=== PATIENT | female | born 1945 | race Caucasian/White ===

== ENCOUNTER 2023-09-22 16:05 | Emergency (ER) | payer OTHER ==
[2023-09-22] MEDS ORDERED: SMZ./TMP. 800/160 MG TABLET ONE (16:34)
[2023-09-22] MEDS ORDERED: TDAP (DIPHTH,PERTUSS(ACELL),TET VAC) 0.5 ML VIAL IMVAC ONE (16:34)
--- NOTE | 2023-09-22 17:19 | RAD REPORT ---
EXAM DESCRIPTION: CT - Facial Bones W/ Mpr - 09/22/2023 5:03 pm CLINICAL HISTORY: Facial injury with pain COMPARISON: None TECHNIQUE: Computed axial tomography of the face was obtained. Coronal and sagittal reconstruction w as performed. All CT scans are performed using dose optimization technique as appropriate and may include automated exposure control or mA/KV adjustment according to patient size. FINDINGS: Some images are degraded by patient motion artifact Right periorbital hematoma A fracture is not seen. A TMJ dislocation is not noted. The globes are intact. Minimal fluid within the sphenoid sinus IMPRESSION: Negative for a facial fracture.
--- NOTE | 2023-09-22 17:20 | RAD REPORT ---
EXAM DESCRIPTION: CT - Head C Spine Mpr Wo Con - 09/22/2023 5:00 pm CLINICAL HISTORY: Head and neck injury status post fall. Head and neck pain COMPARISON: None. TECHNIQUE: Computed axial tomography of the head and cervical spine was obtained. Sagittal and coronal reconstruction was performed. All CT scans are performed using dose optimization technique as appropriate and may include automated exposure control or mA/KV adjustment according to patient size. FINDINGS: Right frontal scalp swelling An intracranial bleed is not seen. The ventricles are normal in caliber. No significant hypodensity within the brain. An extra-axial fluid collection is not noted. Fluid within the visualized sinuses and mastoids is not seen A cervical fracture is not visualized. No dislocation is noted. IMPRESSION: No acute intracranial abnormality is seen. A cervical fracture is not visualized. If the patient continues to have symptoms to suggest intracranial /spinal cord pathology then MRI wou ld be recommended
--- NOTE | 2023-09-22 17:37 | ER ---
Nurse's Notes [facility] Name: Carla Shaikh Age: 77 yrs Sex: Female : 1945 Arrival Date: 09/22/2023 Time: 16:05 Bed 19 Private MD: Diagnosis: Fall on same level, unspecified;Fracture of nasal bones;Laceration without foreign body of other part of head-nasal bridge Presentation: 09/21 16:11 Chief complaint: EMS states: [place], was stepping off of a curb, tripped ph and fell forward, no LOC, does not use blood thinners, laceration to bridge of nose and bruising above R eye, no other injuries. Coronavirus screen: Vaccine status: Patient reports receiving the 2nd dose of the covid vaccine. Ebola Screen: No symptoms or risks identified at this time. Initial Sepsis Screen: Does the patient meet any 2 criteria? No. Patient's initial sepsis screen is negative. Does the patient have a suspected source of infection? No. Patient's initial sepsis screen is negative. Risk Assessment: Do you want to hurt yourself or someone else? Patient reports no desire to harm self or others. Onset of symptoms was September 22, 2023. 16:11 Method Of Arrival: EMS: [facility] ph 16:11 Acuity: MARTI 3 ph 16:20 Care prior to arrival: None. Mechanism of Injury: Fall from standing position. Trauma ph event details: Injury occurred in the [facility]. Trauma event details: Injury occurred: in a public building. Injury occurred: September 22, 2023. Trauma Activation: Not Applicable Physician: ED Physician; Name: ; Notified At: ; Arrived At: Physician: General Surgeon; Name: ; Notified At: ; Arrived At: Physician: Radiology; Name: ; Notified At: ; Arrived At: Physician: Respiratory; Name: ; Notified At: ; Arrived At: Physician: Lab; Name: ; Notified At: ; Arrived At: Historical: - Allergies: 16:14 PENICILLINS; ph 16:14 IODINATED CONTRAST MEDIA; ph - Immunization history:: Adult Immunizations unknown. - Infectious Disease History:: Denies. - Immunization history: Last tetanus immunization: unknown. - Social history:: Smoking status: Patient denies any tobacco usage or history of. Screenin:19 [facility] ED Fall Risk Assessment (Adult) History of falling in the last 3 months, ph including since admission Yes- single mechanical fall (1 pt) Confusion or Disorientation No (0 pts) Intoxicated or Sedated No (0 pts) Impaired Gait No (0 pts) Mobility Assist Device Used No (0 pt) Altered Elimination No (0 pt) Score/Fall Risk Level 0 - 2 = Low Risk Oriented to surroundings, Maintained a safe environment, Hourly rounding (assess needs \T\ fall precautionary measures) done. Abuse screen: Denies threats or abuse. Denies injuries from another. Nutritional screening: No deficits noted. Tuberculosis screening: No symptoms or risk factors identified. Primary Survey: 16:18 NO uncontrolled hemorrhage observed. A: The client is awake and alert. The airway is ph patent. Breathing/Chest: Spontaneous respiratory effort, equal unlabored respirations, breath sounds clear bilaterally, regular pattern, symmetrical chest rise and fall. Circulation: No external hemorrhage present. Regular and strong central pulse, skin warm/dry/normal color. Disability Pupils are equal, round, reactive to light and accommodation. Exposure/Environment: Obvious injury(ies) are noted at this time: laceration to bridge of nose. Assessment: 16:17 General: Appears in no apparent distress. Behavior is calm, cooperative. Pain: ph Complains of pain in face. Neuro: Level of Consciousness is awake, alert, obeys commands, Oriented to person, place, time, situation, Denies weakness blurred vision dizziness. Cardiovascular: Capillary refill < 3 seconds in bilateral fingers Patient's skin is warm and dry. Respiratory: Airway is patent Respiratory effort is even, unlabored. Derm: Skin is pink, warm \T\ dry. Bruising that is dark purple, on right side of forehead. Musculoskeletal: Circulation, motion, and sensation intact. Range of motion: intact in all extremities. Injury Description: Laceration sustained to bridge of nose. Vital Signs: 16:11 BP 157 / 70; Pulse 75; Resp 18; Temp 98; Pulse Ox 96% on R/A; ph Denis Coma Score: 16:16 Eye Response: spontaneous(4). Motor Response: obeys commands(6). Verbal Response: ph oriented(5). Total: 15. Trauma Score (Adult): 16:16 Eye Response: spontaneous(1); Verbal Response: oriented(1); Motor Response: obeys ph commands(2); Systolic BP: > 89 mm Hg(4); Respiratory Rate: 10 to 29 per min(4); Denis Score: 15; Trauma Score: 12 ED Course: 16:10 Patient arrived in ED. ph 16:13 Reese Christiansen MD is Attending Physician. russell 16:14 Triage completed. ph 16:19 Arm band placed on. ph 16:19 Patient has correct armband on for positive identification. Bed in low position. Call ph light in reach. Side rails up X2. Pulse ox on. NIBP on. Door closed. Noise minimized. Warm blanket given. 16:19 Patient maintains SpO2 saturation greater than 95% on room air. Thermoregulation: warm ph blanket given to patient. 16:26 Treasure Alves, RN is Primary Nurse. ph 16:42 Ice pack to injury. ph 16:43 No provider procedures requiring assistance completed. Patient did not have IV access ph during this emergency room visit. 17:[address] via stretcher. ph 17:02 CT Head C Spine In Process Unspecified. EDMS 17:05 Facial Bones W/O Con CT In Process Unspecified. EDMS 17:37 Daysi Chavez MD is Referral Physician. russell Administered Medications: 16:42 Drug: Boostrix Tdap IM 0.5 ml IM once; as a single dose Route: IM; Site: right deltoid; ph 16:42 Drug: Trimethoprim-Sulfamethoxazole PO (160 mg-800 mg (DS) 1 tablet PO once Route: PO; ph 16:42 Drug: Hjgzxjta-Fzwphrumfj-Qvufphmov Topical Ointment 1 application Topical once Route: ph Topical; Site: affected area; Medication: 16:20 VIS not applicable for this client. ph Outcome: 17:37 Discharge ordered by . russell 18:05 Patient left the ED. ph Signatures: Dispatcher [employer] EDMS Reese Christiansen MD MD cha Hall, Patricia, RN RN ph
--- NOTE | 2023-09-22 17:37 | EDPHYS ---
Physician Documentation [facility] Name: Carla Shaikh Age: 77 yrs Sex: Female : 1945 Arrival Date: 09/22/2023 Time: 16:05 Bed 19 Private MD: ED Physician Reese Christiansen HPI: 09/21 16:24 This 77 yrs old Female presents to ER via EMS with complaints of Fall Injury. russell 16:24 Details of fall: The patient fell from an upright position, while walking. Onset: The russell symptoms/episode began/occurred just prior to arrival. Associated injuries: The patient sustained injury to the head. Severity of symptoms: At their worst the symptoms were mild, in the emergency department the symptoms are unchanged. Historical: - Allergies: 16:14 PENICILLINS; ph 16:14 IODINATED CONTRAST MEDIA; ph - Immunization history:: Adult Immunizations unknown. - Infectious Disease History:: Denies. - Immunization history: Last tetanus immunization: unknown. - Social history:: Smoking status: Patient denies any tobacco usage or history of. ROS: 16:35 Constitutional: Negative for fever, chills, and weight loss, Eyes: Negative for injury, russell pain, redness, and discharge, Neck: Negative for injury, pain, and swelling, Cardiovascular: Negative for chest pain, palpitations, and edema, Respiratory: Negative for shortness of breath, cough, wheezing, and pleuritic chest pain, Abdomen/GI: Negative for abdominal pain, nausea, vomiting, diarrhea, and constipation, Back: Negative for injury and pain, : Negative for injury, bleeding, discharge, and swelling, MS/Extremity: Negative for injury and deformity, Skin: Negative for injury, rash, and discoloration, Neuro: Negative for headache, weakness, numbness, tingling, and seizure, Psych: Negative for depression, anxiety, suicide ideation, homicidal ideation, and hallucinations, Allergy/Immunology: Negative for hives, rash, and allergies, Endocrine: Negative for neck swelling, polydipsia, polyuria, polyphagia, and marked weight changes, Hematologic/Lymphatic: Negative for swollen nodes, abnormal bleeding, and unusual bruising, 16:35 ENT: Positive for nose bleed, 16:35 Skin: Positive for avulsion, of the bridge of nose, Exam: 16:35 Constitutional: This is a well developed, well nourished patient who is awake, alert, russell and in no acute distress. Eyes: Pupils equal round and reactive to light, extra-ocular motions intact. Lids and lashes normal. Conjunctiva and sclera are non-icteric and not injected. Cornea within normal limits. Periorbital areas with no swelling, redness, or edema. ENT: Nares patent. No nasal discharge, no septal abnormalities noted. Tympanic membranes are normal and external auditory canals are clear. Oropharynx with no redness, swelling, or masses, exudates, or evidence of obstruction, uvula midline. Mucous membranes moist. Neck: Trachea midline, no thyromegaly or masses palpated, and no cervical lymphadenopathy. Supple, full range of motion without nuchal rigidity, or vertebral point tenderness. No Meningismus. Chest/axilla: Normal chest wall appearance and motion. Nontender with no deformity. No lesions are appreciated. Cardiovascular: Regular rate and rhythm with a normal S1 and S2. No gallops, murmurs, or rubs. Normal PMI, no JVD. No pulse deficits. Respiratory: Lungs have equal breath sounds bilaterally, clear to auscultation and percussion. No rales, rhonchi or wheezes noted. No increased work of breathing, no retractions or nasal flaring. Abdomen/GI: Soft, non-tender, with normal bowel sounds. No distension or tympany. No guarding or rebound. No evidence of tenderness throughout. Back: No spinal tenderness. No costovertebral tenderness. Full range of motion. Female : Normal external genitalia. Skin: Warm, dry with normal turgor. Normal color with no rashes, no lesions, and no evidence of cellulitis. MS/ Extremity: Pulses equal, no cyanosis. Neurovascular intact. Full, normal range of motion. Neuro: Awake and alert, GCS 15, oriented to person, place, time, and situation. Cranial nerves II-XII grossly intact. Motor strength 5/5 in all extremities. Sensory grossly intact. Cerebellar exam normal. Normal gait. Psych: Awake, alert, with orientation to person, place and time. Behavior, mood, and affect are within normal limits. 16:35 Head/face: Noted is abrasion(s), tenderness, that is moderate, Vital Signs: 16:11 BP 157 / 70; Pulse 75; Resp 18; Temp 98; Pulse Ox 96% on R/A; ph [place] Coma Score: 16:16 Eye Response: spontaneous(4). Motor Response: obeys commands(6). Verbal Response: ph oriented(5). Total: 15. Trauma Score (Adult): 16:16 Eye Response: spontaneous(1); Verbal Response: oriented(1); Motor Response: obeys ph commands(2); Systolic BP: > 89 mm Hg(4); Respiratory Rate: 10 to 29 per min(4); [place] Score: 15; Trauma Score: 12 MDM: 16:13 Patient medically screened. russell 16:48 Differential diagnosis: abrasion, closed head injury, contusion, fracture, laceration, russell multiple trauma, sprain, strain. Data reviewed: vital signs, nurses notes, radiologic studies, CT scan. Consideration of Admission/Observation Escalation of care including admission/observation considered. I considered the following discharge prescriptions or medication management in the emergency department Medications were administered in the Emergency Department. See MAR. Independent interpretation of the following test(s) in the Emergency Department CT Scan: My interpretation is ct head, face, c spine. Historians other than the Patient: EMS: ems well informed. 09/21 16:24 Order name: CT Head C Spine; Complete Time: 17:37 [facility] 09/21 16:48 Order name: Facial Bones W/O Con CT; Complete Time: 17:37 [facility] 09/21 16:24 Order name: Ice pack; Complete Time: 16:26 russell Administered Medications: 16:42 Drug: Boostrix Tdap IM 0.5 ml IM once; as a single dose Route: IM; Site: right deltoid; ph 16:42 Drug: Trimethoprim-Sulfamethoxazole PO (160 mg-800 mg (DS) 1 tablet PO once Route: PO; ph 16:42 Drug: Kdyhtchz-Egoperfwzn-Ealpvfimz Topical Ointment 1 application Topical once Route: ph Topical; Site: affected area; Disposition Summary: 09/22/23 17:37 Discharge Ordered Notes: Location: Home russell Problem: new russell Symptoms: have improved russell Condition: Stable russell Diagnosis - Fall on same level, unspecified russell - Fracture of nasal bones russell - Laceration without foreign body of other part of head - nasal bridge russell Followup: russell - With: Private Physician - When: 2 - 3 days - Reason: Recheck today's complaints, Continuance of care, Re-evaluation by your physician Followup: [facility] - With: Daysi Chavez MD - When: 1 - 2 days - Reason: Recheck today's complaints, Re-evaluation by your physician Discharge Instructions: - Discharge Summary Sheet [facility] - Fall Prevention in the Home, Adult [facility] - Laceration Care, Adult russell - Nasal Fracture [facility] - Laceration Care, Adult, [id number] [facility] - Nasal Fracture, [id number] [facility] Forms: - Medication Reconciliation Form [facility] - Antibiotic Education [facility] - Prescription Opioid Use [facility] - Patient Portal Instructions [facility] - Leadership Thank You Letter [facility] Prescriptions: - Centany 2 % Topical ointment - apply 1 application TOPICAL route 3 times per day; 15 gram; Refills: 0, Product [facility] Selection Permitted - Bactrim DS 800-160 mg Oral Tablet - take 1 tablet ORAL route every 12 hours for 7 days; 14 tablet; Refills: 0, [facility] Product Selection Permitted Signatures: Dispatcher [employer] Reese Barakat MD MD cha Hall, Patricia RN RN ph
[2023-09-22 18:11] VITALS: BP 157/70; TEMP 98; O2SAT 96
== END 2023-09-22 18:05 | disposition home or self-care (01) ==
LOC: ER 16:05
DX: S02.2XXA Fracture of nasal bones, initial encounter for closed fracture (principal); S01.21XA Laceration without foreign body of nose, initial encounter; W18.30XA Fall on same level, unspecified, initial encounter; Z23 Encounter for immunization
CPT/HCPCS: 70450; 70486; 72125; 76377